=== PATIENT | female | born 1930 | race Caucasian/White ===

== ENCOUNTER 2017-07-16 14:38 | Emergency (ER) | payer MEDICARE ==
[~2017-07-16] VITALS: Ht 162.6 cm; Wt 60.0 kg
[~2017-07-16 14:38] MED LIST: HYDR-2768 PO; HYDR10TA23 PO; PRIN5TAB PO
[2017-07-16 14:44] VITALS: BP 158/87; PULSE 69; RESP 16; TEMP 98.2; O2SAT 98
[2017-07-16] MEDS ORDERED: CEPH-460 PO (16:49)
--- NOTE | 2017-07-16 16:55 | PD ---
HPI Chief Complaint: Fall Time Seen by Provider: 16:25 Travel History International Travel<30 days: No Contact w/Intl Traveler<30days: No Traveled to known affect area: No History of Present Illness HPI 86-year-old female presents the emergency department status post fall from walking her dog and tripping last evening. She states several abrasions, but the one she is concerned about is on her right great toe. She is able to ambulate with no difficulty but she is concerned about possible infection risk. She states the toenail is still in place, and pain is minimal. Patient has a small abrasion to the left knee, left elbow, and right thenar eminence below the thumb. There is no active bleeding. She refuses tetanus. She takes no aspirin or acetaminophen. PFSH Past Medical History Hx Anticoagulant Therapy: No Cardiovascular Problems: Yes (B/P) Cerebrovascular Accident: Yes (CVA 2013) Hypertension: Yes Tetanus Vaccination: Unknown Influenza Vaccination: No ?: Not Menopausal: Yes Past Surgical History Cholecystectomy: Yes Social History Alcohol Use: No Tobacco Use: No Substance Use: No Allergies-Medications (Allergen,Severity, Reaction): Coded Allergies: acetaminophen (Unverified Allergy, Unknown, 07/16/17) aspirin (Unverified Allergy, Unknown, 07/16/17) Reported Meds & Prescriptions Reported Meds & Active Scripts Active Keflex (Cephalexin) 500 Mg Cap 500 Mg PO Q8H Hydralazine HCl 10 Mg Tab 10 Mg PO BID Reported Prinivil (Lisinopril) 5 Mg Tab 5 Mg PO DAILY Hctz (Hydrochlorothiazide) 25 Mg Tab 25 Mg PO DAILY Review of Systems Except as stated in HPI: all other systems reviewed are Neg General / Constitutional: No: Fever, Chills Eyes: No: Visual changes HENT: No: Headaches Cardiovascular: No: Chest Pain or Discomfort Respiratory: No: Shortness of Breath Gastrointestinal: No: Abdominal Pain Genitourinary: No: Dysuria Musculoskeletal: No: Pain Skin: Positive Lesions, No Rash Neurologic: No: Weakness Psychiatric: No: Depression Endocrine: No: Polydipsia Hematologic/Lymphatic: No: Easy Bruising Physical Exam Narrative GENERAL: Patient appears in no acute distress. SKIN: Warm and dry. Atrophic, multiple old ecchymotic areas. There is a small abrasion to the left anterior knee, left elbow, and right thenar eminence. There is a full thickness abrasion to the tip of the right great toe which does not involve the nailbed. There is no significant signs of cellulitis or lymphadenitis currently. HEAD: Atraumatic. Normocephalic. Nontender. EYES: Pupils equal and round. No scleral icterus. No injection or drainage. ENT: No nasal bleeding or discharge. Mucous membranes pink and moist. NECK: Trachea midline. Supple and nontender. No bony tenderness or step-off. CARDIOVASCULAR: Regular rate and rhythm. RESPIRATORY: No accessory muscle use. Clear to auscultation. Breath sounds equal bilaterally. GASTROINTESTINAL: Abdomen soft, non-tender, nondistended. Hepatic and splenic margins not palpable. MUSCULOSKELETAL: Extremities without clubbing, cyanosis, or edema. No obvious deformities. Patient has full range of motion of the right great toe without significant pain. I do not suspect any fracture. NEUROLOGICAL: Awake and alert. No obvious cranial nerve deficits. Motor grossly within normal limits. Five out of 5 muscle strength in the arms and legs. Normal speech. PSYCHIATRIC: Appropriate mood and affect; insight and judgment normal. Data Data Last Documented VS Vital Signs Date Time Temp Pulse Resp B/P (MAP) Pulse Ox O2 Delivery O2 Flow Rate FiO2 07/16/17 14:44 98.2 69 16 158/87 (110) 98 Room Air MDM Medical Decision Making Medical Screen Exam Complete: Yes Emergency Medical Condition: Yes Differential Diagnosis Tripped while walking the dog. Multiple abrasions. Great toe abrasion. Contusions. Narrative Course Patient is medically stable and pleasant at time of exam. Great toe wound is not closable. The area is cleansed, covered with antibiotic ointment and Xeroform gauze, as well as Aysha creating a bulky bandage for it. Patient should maintain dressing for the next several days until she can follow with her primary care physician to ensure improvement. Patient can ice the areas as long as it is kept Dry. Patient is placed on Keflex 500 mg 3 times a day for 7 days. Patient can return with any worsening symptoms as needed. Diagnosis Primary Impression: Fall Qualified Codes: W19.XXXA - Unspecified fall, initial encounter Additional Impressions: Multiple abrasions Multiple contusions Referrals: Primary Care Physician 3 days Patient Instructions: Abrasion (ED), General Instructions Additional Instructions: Patient is medically stable and pleasant at time of exam. Great toe wound is not closable. The area is cleansed, covered with antibiotic ointment and Xeroform gauze, as well as Aysha creating a bulky bandage for it. Patient should maintain dressing for the next several days until she can follow with her primary care physician to ensure improvement. Patient can ice the areas as long as it is kept Dry. Patient is placed on Keflex 500 mg 3 times a day for 7 days. Patient can return with any worsening symptoms as needed. Med/Other Pt SpecificInfo: Prescription(s) given, Wound Care Scripts Cephalexin (Keflex) 500 Mg Cap 500 MG PO Q8H for Infection, #21 CAP 0 Refills Prov: Rodríguez Fishman MD 07/16/17 Disposition: 01 DISCHARGE HOME Condition: Stable Sidney Toth Jul 16, 2017 16:55
== END 2017-07-16 17:12 | disposition home or self-care (01) ==
LOC: NEPD 14:38
DX: S90.411A Abrasion, right great toe, initial encounter (principal); S80.212A Abrasion, left knee, initial encounter; S50.312A Abrasion of left elbow, initial encounter; S60.511A Abrasion of right hand, initial encounter; I10 Essential (primary) hypertension; Z86.73 Personal history of transient ischemic attack (TIA), and cerebral infarction without residual deficits; W01.0XXA Fall on same level from slipping, tripping and stumbling without subsequent striking against object, initial encounter; Y93.K1 Activity, walking an animal
CPT/HCPCS: 99283